=== PATIENT | female | born 1960 | race Caucasian/White ===

== ENCOUNTER 2017-07-14 10:40 | Outpatient (CLI) | payer OTHER ==
--- NOTE | 2017-07-14 12:18 | RAD ---
RIGHT HIP TWO VIEWS: HISTORY: Disability. Leg length discrepancy. COMPARISON: Radiographs from 2006. FINDINGS: There is abnormal lateral rotation of the acetabular cup, which is worse than the comparison examinat ion. The cerclage wire and the femoral stem are intact. IMPRESSION: Abnormal lateral rotation of the acetabular cup. POS: [place]
== END 2017-07-14 10:41 | disposition home or self-care (01) ==
LOC: RAD 10:40
DX: M89.9 Disorder of bone, unspecified (principal); R93.7 Abnormal findings on diagnostic imaging of other parts of musculoskeletal system